=== PATIENT | male | born 1955 | race Caucasian/White ===

== ENCOUNTER 2017-11-16 13:30 | Emergency (ER) | payer MEDICARE, MEDICAID ==
[~2017-11-16] VITALS: Ht 167.6 cm; Wt 81.0 kg
[~2017-11-16 13:30] MED LIST: ACET-1757 PO; ATOR-2 PO; ATOR10TA PO; BISA10SU2 PR; CYCL-259 PO; DAPT500V6 IVPush; DIPH25CA61 PO; DOCU100C33 PO; ERTA1VIA IV; LISI-170 PO; MORP15TA3 PO; OXYC20TA2 PO; PANT20TA3 PO; TRAZ50TA18 PO
[2017-11-16 14:31] LABS: BASOPHILS # (AUTO) 0.07 x10^3/uL (0-0.1); BASOPHILS % (AUTO) 1 % (0-1); EOSINOPHILS # (AUTO) 0.27 x10^3/uL (0-0.4); EOSINOPHILS % (AUTO) 4 % (1-7); LYMPHOCYTES # (AUTO) 1.97 x10^3/uL (1-3.4); LYMPHOCYTES % (AUTO) 27 % (22-44); MD NO; MEAN CORPUSCULAR HEMOGLOBIN 28.8 pg (27.5-34.5); MEAN CORPUSCULAR HGB CONC 33.9 g/dL (33.2-36.2); MEAN CORPUSCULAR VOLUME 84.9 fL (81-97); MEAN PLATELET VOLUME 9.6 fL (7.4-10.4); MONOCYTES # (AUTO) 0.49 x10^3/uL (0.2-0.8); MONOCYTES % (AUTO) 7 % (2-9); NEUTROPHILS # (AUTO) 4.45 x10^3/uL (1.8-6.8); NEUTROPHILS % (AUTO) 61 % (42-75); PLATELET COUNT 210 x10^3/uL (130-400); RED BLOOD COUNT 4.88 x10^6/uL (4.38-5.82); RED CELL DISTRIBUTION WIDTH 14.5 % (9.4-14.8)
[2017-11-16 14:43] LABS: ANION GAP 6 mmol/L (5-15); CALCIUM 9.1 mg/dL (8.5-10.1); CHLORIDE 110 mmol/L (98-107); CREATININE 1.45 mg/dL (0.7-1.3)
[2017-11-16 15:00] LABS: INTERNATIONAL NORMALIZED RATIO 1.03 (0.93-1.1); PROTHROMBIN TIME 10.7 Seconds (9.6-11.5)
[2017-11-16] MEDS ORDERED: SODIUM CHLORIDE FLUSH 10ML SYR IVF ONE (15:00)
[2017-11-16] MEDS ORDERED: GADOBUTROL 10 MMOL/10 ML VIAL ONE (15:35)
[2017-11-16 16:13] LABS: HCT (SEDRATE) 41.4 % (39.2-51.8)
[2017-11-16 17:21] VITALS: BP 108/76
== END 2017-11-16 18:36 | disposition home or self-care (01) ==
LOC: ED 16:17
DX: H53.133 Sudden visual loss, bilateral (principal); K21.9 Gastro-esophageal reflux disease without esophagitis; G89.29 Other chronic pain; I10 Essential (primary) hypertension; F17.200 Nicotine dependence, unspecified, uncomplicated; R79.1 Abnormal coagulation profile
CPT/HCPCS: 36415; 70450; 70553; 80048; 82040; 85025; 85610; 85651; 85730; 93005; 99285; A9585